=== PATIENT | female | born 1975 | race Caucasian/White ===

== ENCOUNTER → 2024-04-18 06:42 | Outpatient (REF) | payer BC, SELFPAY | LOC: RAD 06:42 | PROVIDERS: ATTENDING PHYSICIAN Urology; FAMILY PHYSICIAN Physician Assistant | DX: N20.0 Calculus of kidney (principal) | CPT/HCPCS: 76775 ==

== ENCOUNTER 2024-10-26 18:27 | Emergency (ER) | payer BC, SELFPAY ==
[2024-10-26 18:29] VITALS: BP 180/100
[2024-10-26] MEDS: ZOFRAN 4 MG IV (18:40)
[2024-10-26 18:48] LABS: % Basophils 0.4 % (0-2); % Eosinophils 1.7 % (0-6); % Immature Granulocytes 0.4 % (0-0.5); % Lymphocytes 35.9 % (20.5-51.1); % Neutrophils 51.6 % (42.2-75.2); Absolute Eosinophils 0.1 10^3/uL (0-0.7); Absolute Lymphocytes 2.9 10^3/uL (1.2-3.4); Absolute Monocytes 0.8 10^3/uL (0.1-0.6); Absolute Neutrophils 4.2 10^3/uL (1.4-6.5); Hematocrit 38.9 % (37.0-47.0); Hemoglobin 13.6 g/dL (12.0-16.0); Mean Corpuscular Volume 88.6 fL (81.0-99.0); Mean Platelet Volume 9.6 fL (7.4-10.4); Nucleated Red Blood Cells % 0 %; Platelet Count 283 10^3/uL (130-400); Red Blood Cell Count 4.39 10^6/uL (4.20-5.40); Red Cell Dist. Width 11.7 % (11.5-14.5); White Blood Cell Count 8.2 10^3/uL (4.8-10.8)
[2024-10-26 19:05] LABS: ALT (SGPT) 30 U/L (0-35); AST (SGOT) 25 U/L (14-36); Albumin 4.6 g/dl (3.5-5.0); Alkaline Phosphatase 64 U/L (38-126); Blood Urea Nitrogen 16 mg/dl (7-17); Calcium 9.2 mg/dl (8.4-10.2); Carbon Dioxide 21 mmol/L (22-30); Chloride 104 mmol/L (98-107); Glucose 122 mg/dl (70-99); Potassium 4.1 mmol/L (3.5-5.1); Sodium 137 mmol/L (135-145); Total Bilirubin 0.4 mg/dl (0.2-1.3); Total Protein 7.2 g/dl (6.3-8.2); eGFR > 60.00
[2024-10-26 19:31] VITALS: BP 153/93
[2024-10-26] MEDS: BENADRYL 25 MG IV (19:40)
[2024-10-26 20:29] VITALS: BP 141/86
--- NOTE | 2024-10-26 20:48 | ED.GENMED ---
History of Present Illness
<Karin Vasquez PA-C - Last Filed: 10/26/24 22:13>
General
Chief Complaint: Musculo-Skeletal Complaint
Source: patient
Exam Limitations: none
Time Seen by Provider: 10/26/24 20:33
Nursing documentation reviewed up to this point in time: agreed with
History of Present Illness
History of Present Illness:
48-year-old female with past medical history of hypertension, hyperlipidemia presenting emergency department today with concerns of right neck/shoulder pain, and nausea and vomiting. This occurred after eating dinner today at a restaurant. Patient
reports that after they were finished eating dinner, patient was being driven home by her when she started to develop right-sided neck/shoulder pain. She also started to develop nausea and vomiting at this time and started to develop an
itchy sensation in her throat and numbness and tingling in her tongue and her lips. Patient no trouble breathing at this time. Patient is allergic to shellfish and states that this sensation she is asked experiencing currently feels similar to
when she has allergic reaction to shellfish. Patient is concerned that she may have excellently eaten something that contained shellfish there is a cross-contamination. Patient states that here in the emergency department in triage, she was given
Zofran and her nausea and vomiting eventually resolved. She is also given Benadryl which resolved the sensation of numbness and tingling as well as itchiness in her throat. Patient states at no time was her lips or tongue swollen. Patient at the
time of my assessment denies any neck or shoulder pain. Patient [place] any recent injury to the head or neck, denies any headaches, denies any dizziness. Patient denies any recent chiropractic manipulation
Past History
<Karin Vasquez PA-C - Last Filed: 10/26/24 22:13>
Past History
ED Past Medical History: Other (Kidney stones), Other (IBS, arrhythmia) and Other (tachycardia); Negative Asthma
ED Past Surgical History: Orthopedic and Other (IVF related)
Social History
Tobacco: Non-smoker
Alcohol: None
Drug: None
Personal:
Living: with family
Employment: Employed
Family History
Family History: Hypertension
Review of Systems
<Karin Vasquez PA-C - Last Filed: 10/26/24 22:13>
Review of Systems
All Other Systems: ROS reviewed and negative except as documented in HPI and ROS
Phy Exam
<Karin Vasquez PA-C - Last Filed: 10/26/24 22:13>
Physical Exam
Physical Exam:
General: Patient is well appearing and in no acute distress; non-toxic
Skin: Warm and dry, no rashes or lesions
Head: Normocephalic, atraumatic.
Eyes: Sclera non-icteric. EOMs intact.
Mouth: No angioedema
Throat: No pharyngeal erythema, uvula midline no uvular edema
Cardiac: Regular rate and rhythm, no murmurs
Pulm: Normal respiratory effort, no wheezes
Abdomen: No abdominal tenderness to palpation
Musculoskeletal: No tenderness to palpation of the cervical spine. No paracervical tenderness. No pain with ROM of right shoulder. No tenderness to palpation of right upper trapezius.
Neuro: CN II-XII intact, no focal neurologic deficits. 5/5 strength in bilateral upper extremities. Normal gait.
Psychiatric: Appropriate mood and affect.
Course
<Karin Vasquez PA-C - Last Filed: 10/26/24 22:13>
Orders/Labs/Results
Orders:
Orders
10/26/24 18:33
Ondansetron Injectable [Zofran] 4 mg .ROUTE .STK-MED ONE
10/26/24 18:35
Electrocardiogram (*1) Urgent
Reason for Study: Other
Other Reason for Exam: neck pain, N/V
EKG- Treatment ONCE
10/26/24 18:36
CMP [Comprehensive Metabolic Panel] Urgent
Complete Blood Count/With Diff Urgent
10/26/24 18:39
Ondansetron Injectable [Zofran] 4 mg IV NOW STA
10/26/24 19:38
Diphenhydramine [Benadryl] 50 mg .ROUTE .STK-MED ONE
10/26/24 19:39
Diphenhydramine [Benadryl] 25 mg IV NOW STA
10/26/24 20:56
Diphenhydramine [Benadryl] 25 mg PO NOW STA
10/26/24 21:03
Diphenhydramine [Benadryl] 25 mg PO NOW STA
Abnormal Lab Results
10/26/24
18:36
Absolute Monos (auto) 0.8 H 10^3/uL
(0.1-0.6)
Monocytes % 10.0 H %
(1.7-9.3)
Carbon Dioxide 21 L mmol/L
(22-30)
Glucose 122 H mg/dl
(70-99)
10/26/24 18:36
10/26/24 18:36
Vital Signs
Initial and Last Documented VS:
Initial Vital Signs
Pulse Resp BP Pulse Ox
123 16 180/100 99
10/26/24 18:29 10/26/24 18:29 10/26/24 18:29 10/26/24 18:29
Last Documented Vital Signs
Pulse Resp BP Pulse Ox
75 16 141/86 98
10/26/24 20:29 10/26/24 20:29 10/26/24 20:29 10/26/24 20:29
<Phil Tuttle MD - Last Filed: 10/26/24 22:21>
Orders/Labs/Results
Orders:
Orders
10/26/24 18:33
Ondansetron Injectable [Zofran] 4 mg .ROUTE .STK-MED ONE
10/26/24 18:35
Electrocardiogram (*1) Urgent
Reason for Study: Other
Other Reason for Exam: neck pain, N/V
EKG- Treatment ONCE
10/26/24 18:36
CMP [Comprehensive Metabolic Panel] Urgent
Complete Blood Count/With Diff Urgent
10/26/24 18:39
Ondansetron Injectable [Zofran] 4 mg IV NOW STA
10/26/24 19:38
Diphenhydramine [Benadryl] 50 mg .ROUTE .STK-MED ONE
10/26/24 19:39
Diphenhydramine [Benadryl] 25 mg IV NOW STA
10/26/24 20:56
Diphenhydramine [Benadryl] 25 mg PO NOW STA
10/26/24 21:03
Diphenhydramine [Benadryl] 25 mg PO NOW STA
Abnormal Lab Results
10/26/24
18:36
Absolute Monos (auto) 0.8 H 10^3/uL
(0.1-0.6)
Monocytes % 10.0 H %
(1.7-9.3)
Carbon Dioxide 21 L mmol/L
(22-30)
Glucose 122 H mg/dl
(70-99)
10/26/24 18:36
10/26/24 18:36
Vital Signs
Initial and Last Documented VS:
Initial Vital Signs
Pulse Resp BP Pulse Ox
123 16 180/100 99
10/26/24 18:29 10/26/24 18:29 10/26/24 18:29 10/26/24 18:29
Last Documented Vital Signs
Pulse Resp BP Pulse Ox
75 16 141/86 98
10/26/24 20:29 10/26/24 20:29 10/26/24 20:29 10/26/24 20:29
<Karin Vasquez PA-C - Last Filed: 10/26/24 22:13>
MDM/Problems Addressed
Differential Diagnosis Includes:
see below
MDM/Problems Addressed:
NUMBER AND COMPLEXITY OF PROBLEMS ADDRESSED AT THE ENCOUNTER
� Chronic conditions affecting care: IBS, HTN
� Acute Exacerbation and/or Progression of Chronic Illness: n/a
� Differential Diagnosis includes: gastroenteritis, food borne illness, allergic reaction, trapezius strain
AMOUNT AND/OR COMPLEXITY OF DATA TO BE REVIEWED AND ANALYZED
� I performed an independent evaluation of and my interpretation is:
EKG: normal sinus rhythm rate 93 with no ischemic changes, no arrhythmia
X-rays: no indication for imaging at this time
Laboratory Studies: CBC and CMP unremarkable
Other:
� Review of other/old records: Lab work reviewed previous ER physician documentation from 03/25/2022, patient seen for elevated blood pressure, anxiety
� Clinical information was obtained by an independent historian: none
� Prescriptions/Medications Considered but not given: n/a
� Further testing considered but not performed: n/a
RISK OF COMPLICATIONS AND/OR MORBIDITY OR MORTALITY OF PATIENT MANAGEMENT
� Social determinants of health affecting care:
� Discussion with other providers: ER attending
� Escalation of care including admission/observation vs risk of discharge considered:
48-year-old female with past medical history of IBS, hypertension, presents emergency department today with concerns of a transient episode of neck/right sided shoulder pain as well as nausea and vomiting. This occurred while driving home from
[place] [employer] for dinner. She also developed scratchy sensation in her throat as well as numbness and tingling in her lips and tongue at this time. Patient symptoms resolved in the emergency department in the waiting room with treatment of
Zofran and Benadryl. At the time my evaluation she is asymptomatic, there is no evidence of angioedema on exam, no uvular edema, no wheezing. Suspect potential allergic reaction versus gastroenteritis/foodborne illness. Advised patient to take
another dose of antihistamine at home. Posterior circulation dissection/stroke was considered considering her neck pain, and facial paresthesias however however patient has no neurologic deficits on exam, her symptoms have resolved, and patient
notes that her symptoms she experienced felt similar to when she had an allergic reaction to shellfish. Patient was up to emergency department for 2-1/2 hours with no recurrence of her symptoms, patient stable for discharge.
<Karin Vasquez PA-C - Last Filed: 10/26/24 22:13>
*Pulse Oximetry
Patient hypoxic: no
*Critical Care Note
Total Time (30-74mins, 75-104mins- exclusive of procedures): Not Applicable
ED Attending Note
<Karin Vasquez PA-C - Last Filed: 10/26/24 22:13>
-
Portions of this chart may have been created with voice recognition software.� Occasional wrong word or��sound alike� substitutions may have occurred due to the inherent limitations of voice recognition software.
<Phil Tuttle MD - Last Filed: 10/26/24 22:21>
ED Attending Note
Patient seen and examined by attending physician: Yes
I performed the substantive portion of visit, reviewed & personally made and approve the management plan that is documented in note by myself or JUJU.: Yes
ED Attending Note:
Patient went out to eat. About 20 minutes later she developed tingling around her mouth and right sided neck pain. Roundup like there was a tightness in her throat. 1 episode of nausea and vomiting. No headache no visual issues no other neurologic
symptoms. She was given a Zofran here on arrival with significant improvement of symptoms and after Benadryl symptoms resolved.
On exam patient is nontoxic in no distress. Speech is normal. Cranial nerves II through XII intact. Extraocular muscles are intact. Patient points to the trapezius area of the right upper chest. She has no true neck discomfort. No carotid
bruits. Nonfocal exam. Nothing to support significant allergic issue at this time. Workup is unremarkable. I do not feel this is consistent with a carotid dissection. Neck discomfort is really not the neck but the trapezius. The neck is
nontender. No carotid bruit. Normal neurologic exam and resolution of symptoms.
Discharge Plan
Departure
Patient Disposition: Home (Routine Discharge)
Date of Disposition: 10/26/24
Time of Disposition: 20:58
Patient with high blood pressure during this ER visit?: Yes
Condition: Good
Discharge Problem:
Nausea and vomiting, Facial paresthesia
Instructions: Nausea and vomiting in adults, Allergic reaction - ED discharge instructions, BLOOD PRESSURE
Prescriptions:
No Action
lisinopril 10 MG tablet
20 mg PO DAILY
ibuprofen 200 MG tablet
200 mg PO Q6HPRN PRN (Reason: headache)
lorazepam 0.5 MG tablet
0.5 mg PO Q4HPRN PRN (Reason: anxiety) Qty: 12 0RF
Mirena 21 mcg/24 hours (8 yrs) 52 mg Intrauterine Device
1 device INTRAUTERINE ONCE
Referrals:
Dolly Miller PA [Family Provider] -
Activity Restrictions/Additional Instructions:
We recommend taking another antihistamine in 2 hours, you can take Benadryl.
PLEASE RETURN EMERGENCY DEPARTMENT SHOULD YOU DEVELOP DIFFICULTY BREATHING, TONGUE OR LIP SWELLING, DIFFICULTY SWALLOWING, CHEST PAIN, SHORTNESS OF BREATH, WHEEZING, ACUTE RETURN OF YOUR SYMPTOMS AND NECK PAIN, OR ANY OTHER SIGNS OR SYMPTOMS
WORRISOME TO YOU.
Interventions
Interventions:
*Risk Screen - Suicide Last Done: 10/26/24 18:29
*General Assessment Last Done: 10/26/24 18:29
*Neglect/Abuse Screening Last Done: 10/26/24 18:29
ED- Fall Risk Assessment Last Done: 10/26/24 20:40
*Nursing Disposition Last Done: 10/26/24 21:05
ED-Musculoskeletal Assessment Last Done: 10/26/24 20:40
Discharge Date and Time
Discharge Date/Time: 10/26/24 21:06
Print Language: HEBREW
[2024-10-26] MEDS: BENADRYL 25 MG PO (21:03)
== END 2024-10-26 21:06 | disposition home or self-care (01) ==
LOC: EMR 18:27
PROVIDERS: Physician Assistant; EMERGENCY PHYSICIAN Emergency Medicine; FAMILY PHYSICIAN Physician Assistant
DX: R11.2 Nausea with vomiting, unspecified (principal); R20.2 Paresthesia of skin; I10 Essential (primary) hypertension; E78.00 Pure hypercholesterolemia, unspecified; K58.9 Irritable bowel syndrome, unspecified; Z82.49 Family history of ischemic heart disease and other diseases of the circulatory system; Z87.442 Personal history of urinary calculi
CPT/HCPCS: 99283; 96374; 96375; 80053; 85025; 93005

== ENCOUNTER 2025-01-15 15:52 | Emergency (ER) | payer BC, SELFPAY ==
[2025-01-15 15:54] VITALS: BP 134/87
[2025-01-15] MEDS: ZOFRAN ODT (ORALLY DISINTEGRATING) 4 MG PO (16:50)
[2025-01-15 16:51] VITALS: BMI 32.8
--- NOTE | 2025-01-15 16:56 | ED.GENMED ---
History of Present Illness
General
Chief Complaint: Head Injury
Source: patient
Exam Limitations: none
Time Seen by Provider: 01/15/25 15:57
Nursing documentation reviewed up to this point in time: agreed with
History of Present Illness
History of Present Illness:
Patient is a 49-year-old female w/ history hypertension presenting to the emergency department after head injury last night. Patient states she was grabbing something for her from a top shelf of garage when a large metal eran came down
striking her on her right forehead, just above her eye. There was no loss of consciousness. Patient states she had a headache last night although took some Tylenol went to sleep. 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
although throughout the day she developed nausea, lightheadedness, headache. Patient denies any vomiting, double vision, blurry vision, ataxia. Patient denies any tinnitus or difficulties hearing.
Patient has been taking Tylenol and Motrin with some improvement in headache.
Past History
Past History
ED Past Medical History: Other (Kidney stones), Other (IBS, arrhythmia) and Other (tachycardia); Negative Asthma
ED Past Surgical History: Orthopedic and Other (IVF related)
Social History
Tobacco: Non-smoker
Alcohol: None
Drug: None
Personal:
Living: with family
Employment: Employed
Family History
Family History: Hypertension
Review of Systems
Review of Systems
Allergies reviewed?: Yes
All Other Systems: ROS reviewed and negative except as documented in HPI and ROS
Phy Exam
Physical Exam
Physical Exam:
Vitals: Mildly hypertensive, otherwise vital signs stable. Afebrile
General: Patient is well appearing, no acute distress. Nontoxic appearing
Skin: Warm and dry, no rashes or lesions
Head: Normocephalic. Contusion to right brow.
Eyes: Sclera nonicteric. EOMs intact. Pupils equal round reactive light bilaterally. Sclera clear bilaterally. No proptosis or evidence of ocular trauma. No nystagmus.
Throat: Protecting airway
Neck: Normal ROM, no cervical spine tenderness, no meningismus
Cardiac: Regular rate and rhythm, no murmurs.
Pulm: Normal respiratory effort, no wheezes, rales, rhonchi heard on exam.
Abdomen: Abdomen soft and nontender. No abdominal tenderness.
Extremities: No evidence of cyanosis or edema. Strength 5 out of 5 in upper and lower extremities.
Neuro: AAOx3. Steady gait. Fluid speech. Sensation intact. Normal finger-nose. No focal deficits.
Psychiatric: Normal affect.
Course
Orders/Labs/Results
Orders:
Orders
01/15/25 16:06
CT Head W/o Iv Contrast Urgent
Comment:
Reason For Exam: Headstrike; swelling right superior orbit
Ondansetron Orally Disint [Zofran Odt (Orally Disintegrating)] 4 mg PO NOW STA
Vital Signs
Initial and Last Documented VS:
Initial Vital Signs
Temp Pulse Resp BP Pulse Ox
97.7 F 67 16 134/87 98
01/15/25 15:54 01/15/25 15:54 01/15/25 15:54 01/15/25 15:54 01/15/25 15:54
Last Documented Vital Signs
Temp Pulse Resp BP Pulse Ox
97.7 F 70 16 136/89 98
01/15/25 15:54 01/15/25 18:26 01/15/25 15:54 01/15/25 18:26 01/15/25 18:26
MDM/Problems Addressed
Differential Diagnosis Includes:
Not limited to: Contusion, concussion, orbital bone fracture, intra cerebral hemorrhage, etc.
MDM/Problems Addressed:
41-year-old female with headache and contusion to right brow, now with mild nausea and lightheadedness after minor head injury last night. There was no loss of conscious. No associated visual changes, vomiting, ataxia, confusion. No blood
thinners. Vital stable. Physical exam as above. Patient well-appearing. She does have contusion noted to right brow. No evidence of ocular trauma. No other obvious traumatic injuries. She is neurologically intact with fluid speech and steady
gait. Impression is likely concussion. Lower suspicion for acute intracranial injury however�given progressive symptoms after known head injury�will obtain CT scan. Will give ODT Zofran. Patient just took Tylenol prior to arrival.
Update: CT without any acute abnormalities. Suspect concussion. At this point�feel patient stable for discharge with primary care follow-up, return precautions. Recommended rest, fluids, Tylenol/NSAIDs for pain. Patient comfortable with plan.
All questions answered
Chronic conditions affecting care:
Hypertension
Acute Exacerbation and/or Progression of Chronic Illness:
Acutely hypertensive
*Radiology
Radiology exam reviewed: preliminary read by ED provider and radiology read reviewed
*Pulse Oximetry
Patient hypoxic: no
*EKG
Interpreted by ED Provider?: NA
*Chemical Plant Manager Interpretation
Rate: Chemical Plant Manager- N/A
*Critical Care Note
Total Time (30-74mins, 75-104mins- exclusive of procedures): Not Applicable
ED Attending Note
-
Portions of this chart may have been created with voice recognition software.� Occasional wrong word or��sound alike� substitutions may have occurred due to the inherent limitations of voice recognition software.
Discharge Plan
Departure
Patient Disposition: Home (Routine Discharge)
Date of Disposition: 01/15/25
Time of Disposition: 18:20
Patient with high blood pressure during this ER visit?: Yes
Condition: Good
Covid-19: Not Applicable
Discharge Problem:
Concussion, Contusion of scalp
Instructions: Concussion, Adult (DC), Contusion (DC), BLOOD PRESSURE
Prescriptions:
New
ondansetron 4 mg tablet,disintegrating
4 mg PO Q8H PRN (Reason: nausea and vomiting) Qty: 5 0RF
No Action
lisinopril 10 MG tablet
20 mg PO DAILY
ibuprofen 200 MG tablet
200 mg PO Q6HPRN PRN (Reason: headache)
lorazepam 0.5 MG tablet
0.5 mg PO Q4HPRN PRN (Reason: anxiety) Qty: 12 0RF
Mirena 21 mcg/24 hours (8 yrs) 52 mg Intrauterine Device
1 device INTRAUTERINE ONCE
Referrals:
Dolly Miller PA [Family Provider] -
Stand Alone Forms: Return to Work
Activity Restrictions/Additional Instructions:
Return to the emergency department with any severe headache/neck pain, intractable nausea/vomiting, vision changes, changes in mental status, worsening current symptoms, or any other concerns
-As discussed�your head CT showed no acute abnormalities today. You likely sustained a concussion
-It is important you stay well-hydrated and get plenty of rest. You should limit your screen time.
-You can take Tylenol and/or Motrin as needed for headache
-Follow-up with primary care for further evaluation/management to ensure that symptoms are improving
Monitor your symptoms closely and return to the emergency department with any acute worsening/new symptoms or any other concerns
Interventions
Interventions:
*Risk Screen - Suicide Last Done: 01/15/25 15:56
*General Assessment Last Done: 01/15/25 16:51
*Neglect/Abuse Screening Last Done: 01/15/25 15:56
*ED COVID-19 Vaccine History Last Done: 01/15/25 16:51
*Nursing Disposition Last Done: 01/15/25 18:26
ED- Neurological Assessment Last Done: 01/15/25 16:51
ED-Skin Assessment Last Done: 01/15/25 16:51
Discharge Date and Time
Discharge Date/Time: 01/15/25 18:41
Print Language: NIGERIEN
[2025-01-15 18:26] VITALS: BP 136/89
== END 2025-01-15 18:41 | disposition home or self-care (01) ==
LOC: EMR 15:52
PROVIDERS: EMERGENCY PHYSICIAN Student in an Organized Health Care Education/Training Program; FAMILY PHYSICIAN Physician Assistant
DX: S06.0X0A Concussion without loss of consciousness, initial encounter (principal); S00.03XA Contusion of scalp, initial encounter; W20.8XXA Other cause of strike by thrown, projected or falling object, initial encounter; R11.0 Nausea; I10 Essential (primary) hypertension
CPT/HCPCS: 99284; 70450

== ENCOUNTER → 2025-02-12 18:34 | Outpatient (REF) | payer BC, SELFPAY | LOC: WDC 18:34 | PROVIDERS: ATTENDING PHYSICIAN Obstetrics & Gynecology; FAMILY PHYSICIAN Family Medicine | DX: Z12.31 Encounter for screening mammogram for malignant neoplasm of breast (principal) | CPT/HCPCS: 77063; 77067 ==